=== PATIENT | female | born 1935 | race Hispanic/Latino ===

== ENCOUNTER 2024-03-19 17:22 | Inpatient (IN) | payer MEDICARE, MEDICAID ==
[2024-03-19 18:41] VITALS: BMI 32.9
[2024-03-19] MEDS ORDERED: Ondansetron ODT 4 MG TAB PO PRN (18:58)
[2024-03-19] MEDS ORDERED: Acetaminophen 650 MG Suppository PR PRN (18:58)
[2024-03-19] MEDS ORDERED: Lactated Ringer's 1,000 ML IV SCH (19:15)
[2024-03-19] MEDS: cefTRIAXone\\ROCEPHIN 1 GM in Sodium Chloride 0.9% 100 ML IVPB SCH (20:03)
[2024-03-19] MEDS ORDERED: Famotidine/PF 20 mg/2ml Vial SLOW IVP SCH (21:00)
[2024-03-19] MEDS: Ketorolac Tromethamine 30 MG (1 mL) VIAL IVP PRN (21:04)
[2024-03-19] MEDS: metroNIDAZOLE 500 MG in Premix 1 BAG IVPB SCH (21:06)
[2024-03-19] MEDS ORDERED: Morphine 2 MG/ML VIAL SLOW IVP PRN (22:29)
[2024-03-19] MEDS ORDERED: Melatonin 3 MG TAB PO SCH (23:00)
[2024-03-19] MEDS: QUEtiapine 25 MG TAB PO SCH (23:12)
[2024-03-20 04:05] LABS: Hematocrit 39.9 % (34.9-44.5); Mean Corpuscular HGB CONC 32.6 g/dL (32.0-36.0); Mean Corpuscular Hemoglobin 29.7 pg (27.0-33.0); Mean Corpuscular Volume 91.3 fL (81.6-98.3); Mean Platelet Volume 10.3 fL (7.4-10.4); Platelet Count 141 10x3/uL (150-450); RBC Distribution Width 14.3 % (11.5-14.5); Red Blood Cell (RBC) Count 4.37 10x6/uL (3.90-5.03)
[2024-03-20 04:06] LABS: MDiff Complete? YES
[2024-03-20 04:16] LABS: ALT (SGPT) 155 U/L (8-55); AST (SGOT) 92 U/L (5-34); Albumin 2.5 g/dL (3.4-4.8); Alkaline Phosphatase 116 U/L (40-110); Anion Gap 12 mmol/L (10-20); BUN (Urea Nitrogen) 34 mg/dL (9.8-20.1); Bilirubin, Total 1.1 mg/dL (0.2-1.2); Calc. Creatinine Clearance 37 mL/min (70-130); Calcium 7.6 mg/dL (7.8-10.44); Carbon Dioxide 25 mmol/L (23-31); Chloride 103 mmol/L (98-107); Estimated GFR 44; Glucose 99 mg/dL (83-110); Lipase 270 U/L (8-78); Potassium 3.3 mmol/L (3.5-5.1); Protein, Total 5.5 g/dL (5.8-8.1); Sodium 137 mmol/L (136-145)
[2024-03-20] MEDS: Sodium Chloride 0.9% 1,000 ML IV SCH (04:28)
[2024-03-20] MEDS: Levothyroxine Sodium 50 MCG TAB PO SCH (04:28)
[2024-03-20 04:34] LABS: Free T4 (Free Thyroxine) 0.84 ng/dL (0.70-1.48); Thyroid Stimulating Hormone 2.8264 uIU/mL (0.35-4.94)
[2024-03-20 04:54] LABS: Band 34 % (5-11); Eosinophils 1 % (0-10); Lymphocytes 9 % (21-51); Metamyelocyte 1 % (0-0); Monocytes 5 % (0-10); Neutrophil 50 % (42-75)
[2024-03-20 04:55] LABS: Platelet Adequacy Comment Appears Decreased; RBC Morph Comment Within Normal Limits; Vacuoles SLIGHT
[2024-03-20] MEDS ORDERED: Insulin Regular, Human 100 UNIT/ML 10 ML VIAL SC PRN ×2 (08:08)
[2024-03-20] MEDS ORDERED: Dextrose 5% in Water 1,000 ML IV PRN (08:08)
[2024-03-20] MEDS ORDERED: Glucagon 1 MG/ML KIT IM PRN (08:08)
[2024-03-20] MEDS ORDERED: Dextrose 50% Abboject 50 ML SYRINGE SLOW IVP PRN (08:08)
[2024-03-20] MEDS ORDERED: Ibuprofen 200 MG TAB PO PRN (08:09)
[2024-03-20] MEDS: Pantoprazole 40 MG VIAL IVP SCH (08:44)
[2024-03-20] MEDS: Potassium Chloride 20 MEQ TAB PO SCH (08:44)
[2024-03-20] MEDS: Piperacillin/Tazobactam 3.375 GM in Sodium Chloride 0.9% 100 ML IVPB SCH ×2 (08:47→13:02)
[2024-03-20] MEDS: Atenolol 25 MG TAB PO SCH (08:47)
[2024-03-20] MEDS ORDERED: Pantoprazole 40 MG VIAL IVP SCH (09:00)
[2024-03-20] MEDS ORDERED: Enoxaparin 40 MG (0.4 mL) SYRINGE SC SCH (09:00)
[2024-03-20] MEDS: Rivastigmine 1.5 MG CAP PO SCH (09:07)
[2024-03-20] MEDS: D5 LR w/20 mEq KCL 1,000 ML IV SCH (09:10)
[2024-03-20] MEDS ORDERED: D5 LR w/20 mEq KCL 1,000 ML IV SCH (09:30)
[2024-03-20] MEDS: Acetaminophen 325 MG TAB PO PRN (09:46)
[2024-03-20 10:15] LABS: Magnesium 1.7 mg/dL (1.6-2.6)
[2024-03-20] MEDS: Enoxaparin 40 MG (0.4 mL) SYRINGE SC SCH (19:47)
[2024-03-20] MEDS: Ondansetron PF 4 MG/2 ML Vial IVP PRN (19:53)
[2024-03-21 03:56] LABS: Hematocrit 38.2 % (34.9-44.5); Hemoglobin 12.7 g/dL (12.0-15.5); Mean Corpuscular HGB CONC 33.2 g/dL (32.0-36.0); Mean Corpuscular Hemoglobin 30.6 pg (27.0-33.0); RBC Distribution Width 14.1 % (11.5-14.5); Red Blood Cell (RBC) Count 4.15 10x6/uL (3.90-5.03); White Blood Cell (WBC) Count 12.1 10x3/uL (3.5-10.5)
[2024-03-21 04:02] LABS: Mean Platelet Volume 10.2 fL (7.4-10.4); Platelet Count 136 10x3/uL (150-450)
[2024-03-21 04:14] LABS: ALT (SGPT) 88 U/L (8-55); AST (SGOT) 37 U/L (5-34); Albumin 2.2 g/dL (3.4-4.8); Alkaline Phosphatase 86 U/L (40-110); Anion Gap 15 mmol/L (10-20); BUN (Urea Nitrogen) 23 mg/dL (9.8-20.1); Bilirubin, Total 1.1 mg/dL (0.2-1.2); Calc. Creatinine Clearance 59 mL/min (70-130); Calcium 7.3 mg/dL (7.8-10.44); Carbon Dioxide 21 mmol/L (23-31); Chloride 105 mmol/L (98-107); Estimated GFR 76; Globulin 3.1 g/dL (2.4-3.5); Glucose 135 mg/dL (83-110); Lipase 56 U/L (8-78); Potassium 3.4 mmol/L (3.5-5.1); Protein, Total 5.3 g/dL (5.8-8.1); Sodium 138 mmol/L (136-145)
[2024-03-21 04:41] LABS: Band 40 % (5-11); Dohle Bodies SLIGHT; Eosinophils 1 % (0-10); Lymphocytes 3 % (21-51); Monocytes 3 % (0-10); Neutrophil 53 % (42-75); Platelet Adequacy Comment Appears Decreased; RBC Morph Comment Within Normal Limits
[2024-03-21 05:17] LABS: MDiff Complete? YES
[2024-03-21] MEDS: Magnesium 2 GM/50 ML(in water) 2 GM in Premix 1 BAG IVPB SCH (09:38)
[2024-03-21] MEDS: Ibuprofen 200 MG TAB PO PRN (09:45)
[2024-03-21] MEDS: FLU (Fluad Triv) TS24-25 (65UP)/MF59C/PF 45 MCG/0.5 ML Syringe IM ONE (10:21)
[2024-03-21] MEDS: Potassium Bicarbonate/Cit Ac 20 MEQ TAB PO SCH (12:05)
[2024-03-21] MEDS: Saccharomyces boulardii 250 MG CAP PO SCH (20:12)
[2024-03-21] MEDS: Famotidine/PF 20 mg/2ml Vial SLOW IVP SCH (20:14)
[2024-03-22 04:02] LABS: #Basophils 0.03 10x3/uL (0.0-0.2); #Eosinophils 0.03 10x3/uL (0.0-0.5); %Basophils 0.2 % (0.0-2.0); %Eosinophils 0.2 % (0.0-6.0); %Lymphocytes 3.7 % (18.0-47.0); %Monocytes 3.9 % (0.0-10.0); %Neutrophils 91.1 % (40.0-75.0); Hematocrit 38.1 % (34.9-44.5); Hemoglobin 12.5 g/dL (12.0-15.5); Mean Corpuscular HGB CONC 32.8 g/dL (32.0-36.0); Mean Corpuscular Hemoglobin 29.8 pg (27.0-33.0); Mean Corpuscular Volume 90.9 fL (81.6-98.3); Mean Platelet Volume 9.8 fL (7.4-10.4); Platelet Count 149 10x3/uL (150-450); RBC Distribution Width 13.8 % (11.5-14.5); Red Blood Cell (RBC) Count 4.19 10x6/uL (3.90-5.03); White Blood Cell (WBC) Count 15.3 10x3/uL (3.5-10.5)
[2024-03-22 04:31] LABS: ALT (SGPT) 59 U/L (8-55); AST (SGOT) 20 U/L (5-34); Albumin 2.1 g/dL (3.4-4.8); Alkaline Phosphatase 86 U/L (40-110); Anion Gap 10 mmol/L (10-20); BUN (Urea Nitrogen) 13 mg/dL (9.8-20.1); Calc. Creatinine Clearance 70 mL/min (70-130); Calcium 8.2 mg/dL (7.8-10.44); Carbon Dioxide 22 mmol/L (23-31); Chloride 104 mmol/L (98-107); Estimated GFR 84; Globulin 3.5 g/dL (2.4-3.5); Glucose 170 mg/dL (83-110); Magnesium 1.8 mg/dL (1.6-2.6); Potassium 3.4 mmol/L (3.5-5.1); Protein, Total 5.6 g/dL (5.8-8.1); Sodium 133 mmol/L (136-145)
[2024-03-22 04:39] LABS: Phosphorus 1.2 mg/dL (2.3-4.7)
[2024-03-22] MEDS: Famotidine 20 MG TAB PO SCH ×2 (05:13→20:41)
[2024-03-22] MEDS ORDERED: Electrolyte Replacement Protocol 1 EACH FS SCH (07:45)
[2024-03-22] MEDS: PHOS-NAK 1 PKT PACK PO SCH (09:08)
[2024-03-22] MEDS: Magnesium 2 GM/50 ML(in water) 2 GM in Premix 1 BAG IVPB SCH (09:08)
[2024-03-22] MEDS: Mometasone 200 MCG/Formoterol 5 MCG 60 PUFF INHALER INH SCH (10:45)
[2024-03-22] MEDS: cefTRIAXone\\ROCEPHIN 2 GM in Sodium Chloride 0.9% 100 ML IVPB SCH (11:46)
[2024-03-23] MEDS: Famotidine/PF 20 mg/2ml Vial SLOW IVP SCH (01:00)
[2024-03-23 04:30] LABS: #Basophils 0.04 10x3/uL (0.0-0.2); #Eosinophils 0.02 10x3/uL (0.0-0.5); #Monocytes 0.77 10x3/uL (0.0-1.1); #Neutrophils 13.85 10x3/uL (1.5-8.4); %Basophils 0.3 % (0.0-2.0); %Eosinophils 0.1 % (0.0-6.0); %Lymphocytes 5.5 % (18.0-47.0); %Monocytes 4.9 % (0.0-10.0); %Neutrophils 87.3 % (40.0-75.0); Hematocrit 38.2 % (34.9-44.5); Hemoglobin 12.6 g/dL (12.0-15.5); Mean Corpuscular Hemoglobin 29.9 pg (27.0-33.0); Mean Corpuscular Volume 90.7 fL (81.6-98.3); Mean Platelet Volume 10.2 fL (7.4-10.4); Platelet Count 184 10x3/uL (150-450); RBC Distribution Width 13.8 % (11.5-14.5); Red Blood Cell (RBC) Count 4.21 10x6/uL (3.90-5.03); White Blood Cell (WBC) Count 15.9 10x3/uL (3.5-10.5)
[2024-03-23 04:46] LABS: ALT (SGPT) 43 U/L (8-55); AST (SGOT) 19 U/L (5-34); Alkaline Phosphatase 99 U/L (40-110); Anion Gap 15 mmol/L (10-20); BUN (Urea Nitrogen) 8 mg/dL (9.8-20.1); Bilirubin, Total 0.7 mg/dL (0.2-1.2); Calc. Creatinine Clearance 78 mL/min (70-130); Calcium 8.4 mg/dL (7.8-10.44); Carbon Dioxide 23 mmol/L (23-31); Chloride 102 mmol/L (98-107); Estimated GFR 87; Globulin 3.6 g/dL (2.4-3.5); Glucose 113 mg/dL (83-110); Magnesium 1.8 mg/dL (1.6-2.6); Potassium 3.5 mmol/L (3.5-5.1); Protein, Total 5.6 g/dL (5.8-8.1); Sodium 136 mmol/L (136-145)
[2024-03-23] MEDS: PHOS-NAK 1 PKT PACK PO SCH (09:14)
[2024-03-23] MEDS: Magnesium 2 GM/50 ML(in water) 2 GM in Premix 1 BAG IVPB SCH (09:20)
[2024-03-23] MEDS: Pancrelipase DR 12,000 1 CAP PO SCH (12:43)
[2024-03-23 14:40] VITALS: BP 156/76; TEMP 98.4
== END 2024-03-23 14:28 | disposition home health service (06) | DRG 871 ==
LOC: CSHTELE 18:12
PROVIDERS: ADMIT Internal Medicine; ATTEND Family Medicine
DX: A41.89 Other specified sepsis (principal); G93.41 Metabolic encephalopathy; K85.90 Acute pancreatitis without necrosis or infection, unspecified; K83.09 Other cholangitis; R65.20 Severe sepsis without septic shock; K21.9 Gastro-esophageal reflux disease without esophagitis; I25.10 Atherosclerotic heart disease of native coronary artery without angina pectoris; I11.0 Hypertensive heart disease with heart failure; D69.6 Thrombocytopenia, unspecified; E03.9 Hypothyroidism, unspecified; E87.6 Hypokalemia; E83.42 Hypomagnesemia; I50.9 Heart failure, unspecified; F03.90 Unspecified dementia, unspecified severity, without behavioral disturbance, psychotic disturbance, mood disturbance, and anxiety; E78.5 Hyperlipidemia, unspecified; Z79.899 Other long term (current) drug therapy; Z79.890 Hormone replacement therapy; Z79.1 Long term (current) use of non-steroidal anti-inflammatories (NSAID); Z79.82 Long term (current) use of aspirin
CPT/HCPCS: 36415; 36416; 74018; 76705; 80053; 83690; 83735; 83880; 84100; 84439; 84443; 84481; 85025; 86140; 87040; 87077; 87149; 87186; 93005; 93010; 94664; J0696; J1650; J1885; J2405; J2470; J2543; J3475; J3480; J3490; J7030

== ENCOUNTER 2024-03-31 09:42 | Inpatient (IN) | payer MEDICARE, MEDICAID ==
[2024-03-31 10:58] LABS: #Basophils 0.05 10x3/uL (0.0-0.2); #Eosinophils 0.07 10x3/uL (0.0-0.5); #Monocytes 0.56 10x3/uL (0.0-1.1); #Neutrophils 8.15 10x3/uL (1.5-8.4); %Basophils 0.5 % (0.0-2.0); %Eosinophils 0.7 % (0.0-6.0); %Lymphocytes 11.1 % (18.0-47.0); %Monocytes 5.3 % (0.0-10.0); %Neutrophils 77.6 % (40.0-75.0); Hematocrit 34.1 % (34.9-44.5); Hemoglobin 11.2 g/dL (12.0-15.5); Mean Corpuscular HGB CONC 32.8 g/dL (32.0-36.0); Mean Corpuscular Hemoglobin 29.9 pg (27.0-33.0); Mean Corpuscular Volume 91.2 fL (81.6-98.3); Mean Platelet Volume 8.7 fL (7.4-10.4); Platelet Count 340 10x3/uL (150-450); RBC Distribution Width 13.8 % (11.5-14.5); Red Blood Cell (RBC) Count 3.74 10x6/uL (3.90-5.03); White Blood Cell (WBC) Count 10.5 10x3/uL (3.5-10.5)
[2024-03-31 11:15] LABS: ALT (SGPT) 55 U/L (8-55); AST (SGOT) 48 U/L (5-34); Albumin 2.3 g/dL (3.4-4.8); Alkaline Phosphatase 66 U/L (40-110); Anion Gap 14 mmol/L (10-20); BUN (Urea Nitrogen) 10 mg/dL (9.8-20.1); Bilirubin, Total 0.6 mg/dL (0.2-1.2); Calc. Creatinine Clearance 0 mL/min (70-130); Calcium 8.2 mg/dL (7.8-10.44); Carbon Dioxide 26 mmol/L (23-31); Chloride 104 mmol/L (98-107); Estimated GFR 85; Globulin 3.2 g/dL (2.4-3.5); Glucose 135 mg/dL (83-110); Lipase 9 U/L (8-78); Magnesium 1.6 mg/dL (1.6-2.6); Potassium 3.6 mmol/L (3.5-5.1); Protein, Total 5.5 g/dL (5.8-8.1); Sodium 140 mmol/L (136-145)
[2024-03-31] MEDS ORDERED: Acetaminophen 325 MG TAB PO PRN (13:47)
[2024-03-31] MEDS ORDERED: Iopamidol 370 76% 100 ML VIAL ONE (13:54)
[2024-03-31] MEDS ORDERED: Morphine 2 MG/ML VIAL SLOW IVP PRN (14:32)
[2024-03-31 14:58] VITALS: BMI 39.9
[2024-03-31] MEDS: Sodium Chloride 0.9% 1,000 ML IV SCH (16:01)
[2024-03-31] MEDS: Rivastigmine 1.5 MG CAP PO SCH (17:16)
[2024-03-31] MEDS: Mometasone 200 MCG/Formoterol 5 MCG 60 PUFF INHALER INH SCH (19:51)
[2024-03-31] MEDS: HYDROcodone/Acetaminophen 5/325 mg Tablet PO PRN (20:43)
[2024-04-01 04:26] LABS: ALT (SGPT) 44 U/L (8-55); AST (SGOT) 38 U/L (5-34); Albumin 2.1 g/dL (3.4-4.8); Alkaline Phosphatase 58 U/L (40-110); Anion Gap 13 mmol/L (10-20); BUN (Urea Nitrogen) 6 mg/dL (9.8-20.1); Bilirubin, Total 0.5 mg/dL (0.2-1.2); Calc. Creatinine Clearance 82 mL/min (70-130); Carbon Dioxide 24 mmol/L (23-31); Chloride 104 mmol/L (98-107); Estimated GFR 86; Globulin 3.3 g/dL (2.4-3.5); Glucose 128 mg/dL (83-110); Potassium 3.3 mmol/L (3.5-5.1); Protein, Total 5.4 g/dL (5.8-8.1); Sodium 138 mmol/L (136-145)
[2024-04-01 04:35] LABS: #Basophils 0.05 10x3/uL (0.0-0.2); #Eosinophils 0.09 10x3/uL (0.0-0.5); #Monocytes 0.66 10x3/uL (0.0-1.1); #Neutrophils 7.16 10x3/uL (1.5-8.4); %Basophils 0.5 % (0.0-2.0); %Eosinophils 0.9 % (0.0-6.0); %Lymphocytes 13.1 % (18.0-47.0); %Monocytes 6.9 % (0.0-10.0); %Neutrophils 74.8 % (40.0-75.0); Hematocrit 33.4 % (34.9-44.5); Hemoglobin 10.6 g/dL (12.0-15.5); Mean Corpuscular HGB CONC 31.7 g/dL (32.0-36.0); Mean Corpuscular Hemoglobin 29.4 pg (27.0-33.0); Mean Corpuscular Volume 92.8 fL (81.6-98.3); Mean Platelet Volume 8.7 fL (7.4-10.4); Platelet Count 326 10x3/uL (150-450); RBC Distribution Width 13.7 % (11.5-14.5); White Blood Cell (WBC) Count 9.6 10x3/uL (3.5-10.5)
[2024-04-01] MEDS: Simvastatin 10 MG TAB PO SCH (09:41)
[2024-04-01] MEDS: Pantoprazole DR 40 MG TAB PO SCH (09:41)
[2024-04-01] MEDS: Cyanocobalamin (Vitamin B-12) 1,000 MCG TAB PO SCH (09:41)
[2024-04-01] MEDS: Levothyroxine Sodium 50 MCG TAB PO SCH (09:41)
[2024-04-01] MEDS: Atenolol 50 MG TAB PO SCH (09:42)
[2024-04-01] MEDS: Aspirin 81 mg Enteric Coated Tablet PO SCH (09:42)
[2024-04-01] MEDS: FLU (Fluad Triv) TS24-25 (65UP)/MF59C/PF 45 MCG/0.5 ML Syringe IM ONE (09:42)
[2024-04-01] MEDS: Enoxaparin 30 MG (0.3 mL) SYRINGE SC SCH (09:42)
[2024-04-01] MEDS: Ketorolac Tromethamine 30 MG (1 mL) VIAL IVP PRN (10:23)
[2024-04-01] MEDS: Piperacillin/Tazobactam 3.375 GM in Sodium Chloride 0.9% 100 ML IVPB SCH (12:12)
[2024-04-01] MEDS: Pancrelipase DR 12,000 1 CAP PO SCH (12:18)
[2024-04-01 14:12] LABS: #Basophils 0.05 10x3/uL (0.0-0.2); #Eosinophils 0.07 10x3/uL (0.0-0.5); #Monocytes 0.53 10x3/uL (0.0-1.1); #Neutrophils 8.01 10x3/uL (1.5-8.4); %Basophils 0.5 % (0.0-2.0); %Eosinophils 0.7 % (0.0-6.0); %Lymphocytes 13.1 % (18.0-47.0); %Monocytes 5.2 % (0.0-10.0); %Neutrophils 77.9 % (40.0-75.0); Hematocrit 36.8 % (34.9-44.5); Hemoglobin 11.7 g/dL (12.0-15.5); Mean Corpuscular HGB CONC 31.8 g/dL (32.0-36.0); Mean Corpuscular Hemoglobin 29.7 pg (27.0-33.0); Mean Corpuscular Volume 93.4 fL (81.6-98.3); Mean Platelet Volume 8.6 fL (7.4-10.4); Platelet Count 383 10x3/uL (150-450); RBC Distribution Width 13.6 % (11.5-14.5); Red Blood Cell (RBC) Count 3.94 10x6/uL (3.90-5.03); White Blood Cell (WBC) Count 10.3 10x3/uL (3.5-10.5)
[2024-04-01 14:14] LABS: Anion Gap 14 mmol/L (10-20); BUN (Urea Nitrogen) 6 mg/dL (9.8-20.1); Calc. Creatinine Clearance 77 mL/min (70-130); Calcium 8.6 mg/dL (7.8-10.44); Carbon Dioxide 25 mmol/L (23-31); Chloride 103 mmol/L (98-107); Estimated GFR 85; Glucose 117 mg/dL (83-110); Potassium 3.7 mmol/L (3.5-5.1); Sodium 138 mmol/L (136-145)
[2024-04-01] MEDS ORDERED: Ketorolac Tromethamine 30 MG (1 mL) VIAL ONE (15:27)
[2024-04-01] MEDS ORDERED: LevoFLOXacin D5W 500 mg (100 mL) BAG ONE (15:29)
[2024-04-01] MEDS ORDERED: Scopolamine 1 mg/72 hour Patch ONE (15:29)
[2024-04-01] MEDS ORDERED: traMADol HCl 50 MG TAB PO PRN (15:46)
[2024-04-01] MEDS ORDERED: PROPOFOL 20 ML ONE (15:53)
[2024-04-01] MEDS ORDERED: Fentanyl 250 MCG/5 ML VIAL ONE (15:53)
[2024-04-01] MEDS ORDERED: Metoclopramide HCl 10 MG (2 mL) VIAL ONE (15:55)
[2024-04-01] MEDS ORDERED: SUCCINYLCHOLINE/SOD CL,ISO/PF 200 MG/10 ML SYRINGE FS ONE (15:55)
[2024-04-01] MEDS ORDERED: ePHEDrine Sulfate 50 MG/10 ML VIAL ONE (15:55)
[2024-04-01] MEDS ORDERED: Dexamethasone 4 mg/ml Vial ONE (15:55)
[2024-04-01] MEDS ORDERED: Ondansetron PF 4 MG/2 ML Vial ONE (15:55)
[2024-04-01] MEDS ORDERED: Rocuronium Bromide 10 MG/ML (10ML VIAL) ONE (15:55)
[2024-04-01] MEDS ORDERED: PHENYLEPHRINE-NS 100 MCG/ML 10 ML SYRINGE ONE (15:55)
[2024-04-01] MEDS ORDERED: Lidocaine 4% PF 5 ML AMP ONE (15:59)
[2024-04-01] MEDS ORDERED: Piperacillin/Tazobactam 3.375 GM in Sodium Chloride 0.9% 100 ML IVPB SCH (16:00)
[2024-04-01] MEDS ORDERED: Glycopyrrolate 0.2 MG/ML 5 ML SYRINGE ONE (16:01)
[2024-04-01] MEDS ORDERED: Bupivacaine HCl 0.5%/Epinephrine 1:200,000/PF 30 ml Vial ONE (16:32)
[2024-04-01] MEDS ORDERED: Esmolol 100 MG/10 ML VIAL ONE (16:55)
[2024-04-01] MEDS: Acetaminophen 500 MG TAB PO SCH (19:53)
[2024-04-01] MEDS: Polyethylene Glycol 3350 17 GM Packet PO SCH (19:53)
[2024-04-01] MEDS: Ondansetron PF 4 MG/2 ML Vial IVP PRN (20:07)
[2024-04-01] MEDS: Lactated Ringer's 1,000 ML IV SCH (20:12)
[2024-04-02 04:29] LABS: #Basophils 0.02 10x3/uL (0.0-0.2); #Monocytes 0.31 10x3/uL (0.0-1.1); #Neutrophils 13.13 10x3/uL (1.5-8.4); %Basophils 0.1 % (0.0-2.0); %Lymphocytes 3.9 % (18.0-47.0); %Monocytes 2.2 % (0.0-10.0); %Neutrophils 92.5 % (40.0-75.0); Hematocrit 30.6 % (34.9-44.5); Hemoglobin 10.3 g/dL (12.0-15.5); Mean Corpuscular HGB CONC 33.7 g/dL (32.0-36.0); Mean Corpuscular Hemoglobin 30.7 pg (27.0-33.0); Mean Corpuscular Volume 91.1 fL (81.6-98.3); Mean Platelet Volume 8.7 fL (7.4-10.4); Platelet Count 308 10x3/uL (150-450); RBC Distribution Width 13.5 % (11.5-14.5); Red Blood Cell (RBC) Count 3.36 10x6/uL (3.90-5.03); White Blood Cell (WBC) Count 14.2 10x3/uL (3.5-10.5)
[2024-04-02 04:43] LABS: ALT (SGPT) 52 U/L (8-55); AST (SGOT) 71 U/L (5-34); Albumin 2.1 g/dL (3.4-4.8); Alkaline Phosphatase 62 U/L (40-110); Anion Gap 12 mmol/L (10-20); BUN (Urea Nitrogen) 7 mg/dL (9.8-20.1); Bilirubin, Total 0.5 mg/dL (0.2-1.2); Calc. Creatinine Clearance 77 mL/min (70-130); Calcium 8.3 mg/dL (7.8-10.44); Carbon Dioxide 25 mmol/L (23-31); Chloride 105 mmol/L (98-107); Estimated GFR 85; Globulin 3.4 g/dL (2.4-3.5); Glucose 183 mg/dL (83-110); Potassium 3.9 mmol/L (3.5-5.1); Protein, Total 5.5 g/dL (5.8-8.1); Sodium 138 mmol/L (136-145)
[2024-04-02] MEDS: Metamucil PACK PO SCH (08:38)
[2024-04-02] MEDS ORDERED: Ibuprofen 200 MG TAB PO PRN (09:54)
[2024-04-02 11:28] VITALS: BP 138/64; TEMP 97.9
[2024-04-02] MEDS ORDERED: Saccharomyces boulardii 250 MG CAP PO SCH (21:00)
[2024-04-03] MEDS ORDERED: Calcium Carbonate 600 MG TAB PO SCH (09:00)
== END 2024-04-02 13:47 | disposition home or self-care (01) | DRG 417 ==
LOC: CSHERS 09:42 → CSHTELE 14:52 → OBSVTOIN 04-02 12:40
PROVIDERS: ADMIT Internal Medicine; ATTEND Family Medicine
PROC: 0FT44ZZ Resection of Gallbladder, Percutaneous Endoscopic Approach (ICD-10-PCS; principal; 2024-04-01)
PROC: 0WQF4ZZ Repair Abdominal Wall, Percutaneous Endoscopic Approach (ICD-10-PCS; 2024-04-01)
PROC: BF532Z0 Other Imaging of Gallbladder and Bile Ducts using Fluorescing Agent, Intraoperative (ICD-10-PCS; 2024-04-01)
DX: K80.12 Calculus of gallbladder with acute and chronic cholecystitis without obstruction (principal); K85.10 Biliary acute pancreatitis without necrosis or infection; I50.32 Chronic diastolic (congestive) heart failure; K86.3 Pseudocyst of pancreas; E03.9 Hypothyroidism, unspecified; I25.10 Atherosclerotic heart disease of native coronary artery without angina pectoris; I11.0 Hypertensive heart disease with heart failure; E78.5 Hyperlipidemia, unspecified; G30.1 Alzheimer's disease with late onset; E11.9 Type 2 diabetes mellitus without complications; F02.80 Dementia in other diseases classified elsewhere, unspecified severity, without behavioral disturbance, psychotic disturbance, mood disturbance, and anxiety; Z79.899 Other long term (current) drug therapy; Z79.82 Long term (current) use of aspirin; Z79.890 Hormone replacement therapy; Z79.1 Long term (current) use of non-steroidal anti-inflammatories (NSAID); Z98.891 History of uterine scar from previous surgery
CPT/HCPCS: 36415; 47532; 74177; 76705; 80053; 83605; 83690; 83735; 84145; 85025; 87040; 88304; 94664; 96372; 96374; 96375; C1889; G0378; J1100; J1650; J1885; J1956; J2405; J2543; J2704; J2765; J3010; J7030; J7120; Q9967